=== PATIENT | female | born 1985 | race Caucasian/White ===

== ENCOUNTER 2018-12-07 07:53 | Inpatient (IN) ==
--- NOTE | 2018-11-06 10:42 | Anesthesiology Consultation ---
Date of Service November 06, 2018 Assessment & Plan (1) Encounter for pre-operative examination: - Thoracic surgery: 07/17/18: s/p [facility] ER visit 2/2 dyspnea (patient at that time was 8 weeks ). PE ruled out. CTA consistent with pneumonia- discharged on inhaler; also, pericardial cyst noted. ER EKG: ST at 132 bpm (HR 92 at thoracic surgery f/u office visit 07/17/18). Possible LAE. Inferior TWA. Tachycardia improved with bolus (HR 92 at F/U office visit). Case reviewed by Dr. Sanchez and recommended patient followup as outpatient. At followup visit 07/17/18, lungs clear and symptoms resolved. No "red flags" regarding pericardial cyst and plan for repeat CT to monitor after (scheduled 03/2019). Patient subsequently had D&E: 08/28/18: LMA#4 at [facility]. - Check test AM DOS Chart Review Chart Review: Acceptable Risk for Surgery (pending repeat EKG (attempting to have patient repeat EKG prior to surgery)) and Patient NOT seen in Pre Admission Testing History Surgery Operation Date: 12/07/18 07:15 Proposed Procedures p Right Video Assisted Thoracoscopy with Resection Pericardial Cyst - Samson Sanchez MD, FACS Height/Weight Height: 5 ft 7 in Weight: 81.647 kg Allergies Allergy/AdvReac Type Severity Reaction Status Date / Time kiwi Allergy Severe LIP/THROAT/FACE Verified 11/06/18 09:14 EDEMA Sulfa (Sulfonamide Allergy Intermediate HIVES Verified 11/06/18 09:14 Antibiotics) bacitracin Allergy Mild RASH Verified 11/06/18 09:14 latex Allergy Mild RASH Verified 11/06/18 09:14 neomycin Allergy Mild RASH Verified 11/06/18 09:14 polymyxin B Allergy Mild RASH Verified 11/06/18 09:14 Medications Home Medications Medication Instructions Recorded Confirmed Last Taken multivitamin 1 tab PO DAILY 11/06/18 11/06/18 Unknown Past Medical History Medical History Pericardial cyst INCIDENTAL FINDING 06/2018- CT SCAN FINDING DURING Past Surgical History Surgical History History of cholecystectomy LAP History of dilatation and curettage Social History Smoking Status: Never smoker Do You Dip or Chew Tobacco: No Hx Alcohol Use: No Hx Substance Use: No substance use type: does not use Testing Electrocardiogram Date: 07/07/18 ST at 132 bpm (HR 92 at thoracic surgery f/u office visit 07/17/18). Possible LAE. Inferior TWA. Other Testing CTA Chest: 07/07/18: no evidence of pulmonary embolus. Small patchy groundglass densities within the right upper lobe anteriorly and right middle lobe. This favors a mild pneumonitis and may be due to an infectious process. There is a 4.7 x 2.6 cm low density structure adjacent to the right heart border along the hemidiaphragm. This favors a pericardial cyst. Chest MRI: 10/03/18: Small laminar pericardial cyst along the right cardiophrenic angle. This is benign and unlikely to result in symptomatology. No suspicious lesion in the thorax. No mass lesion involving the airway.
[~2018-12-07 07:53] MED LIST: LR 15ML/HR IV SCH
[2018-12-07] MEDS ORDERED: PHENYLEPHRINE HCL 10 MG/ML VIAL ONE ×2 (10:43→13:01)
[2018-12-07] MEDS ORDERED: fentaNYL citrate 100 MCG/2 ML VIAL ONE ×3 (10:43→14:32)
[2018-12-07] MEDS ORDERED: SUCCINYLCHOLINE CHLORIDE 20 MG/ML 10 ML VIAL ONE (10:43)
[2018-12-07] MEDS ORDERED: NEOSTIGMINE METHYLSULFATE 5 MG/5 ML SYR ONE (10:43)
[2018-12-07] MEDS ORDERED: ePHEDrine sulfate 50 MG/ML AMP ONE (10:43)
[2018-12-07] MEDS ORDERED: DEXAMETHASONE SOD INJ 4 MG/ML VIAL ONE ×3 (10:43→13:58)
[2018-12-07] MEDS ORDERED: PROPOFOL IV EMULSION 10 MG/ML 20 ML VIAL IV ONE ×4 (10:43→14:55)
[2018-12-07] MEDS ORDERED: LIDOCAINE HCL 2% 2 ML VIAL/AMP(20MG/ML) INFIL ONE (10:43)
[2018-12-07] MEDS ORDERED: GLYCOPYRROLATE 0.2 MG/ML VIAL ONE (10:43)
[2018-12-07] MEDS ORDERED: ONDANSETRON INJ 2 MG/ML 2 ML VIAL ONE (10:43)
[2018-12-07] MEDS ORDERED: MIDAZOLAM HCL 1 MG/ML 2ML VIAL ONE ×2 (10:43→12:27)
[2018-12-07] MEDS ORDERED: BUPIVACAINE 0.5 % 5 MG/1 ML MPF 30ML VIAL ONE (11:37)
[2018-12-07] MEDS ORDERED: SODIUM CHLORIDE 0.9% PF 50 ML VIAL ONE (11:38)
[2018-12-07] MEDS ORDERED: BUPIVACAINE LIPOSOME 1.3% 266 MG/20 ML VIAL ONE (11:38)
--- NOTE | 2018-12-07 11:41 | History & Physical Report ---
Date of Service December 07, 2018 Assessment & Plan (1) Pericardial cyst: We are going to proceed with a right thoracoscopy with a pericardial cyst excision. We discussed risk and benefits including lung injuries bleeding prolonged air leaks. I explained that might biggest concern would be that this is not a pericardial cyst. I would find that highly unlikely but we did discuss this in the office. We are going to proceed today with a right thoracoscopy with a pericardial cyst excision. Present on Admission?: Yes History of Present Illness This is a very nice healthy 32-year-old female who was serendipitously found to have a right pericardial cyst. CT scan was performed to rule out a pulmonary embolism and an MRI confirmed this suspected pericardial cyst. A long talk in the office on several occasions I discussed this with her . I explained that observing this cyst is an option. It is fairly large of 5 cm across. Occasionally people can bleed into the cyst. Also possible it is not a pericardial cyst although I would find that highly unlikely. One problem I do have at the patient is she has a pressure type pain in her right substernal area. We had a long talk about this. I explained that I do not believe this is from her pericardial cyst but it is possible. At any rate we are going to proceed with a right thoracoscopy with excision of the cyst on 12/07/2018. Primary Care Provider: Miguel Pierre MD Allergies Allergy/AdvReac Type Severity Reaction Status Date / Time kiwi Allergy Severe LIP/THROAT/FACE Verified 12/07/18 08:32 EDEMA Sulfa (Sulfonamide Allergy Intermediate HIVES Verified 12/07/18 08:32 Antibiotics) bacitracin Allergy Mild RASH Verified 12/07/18 08:32 latex Allergy Mild RASH Verified 12/07/18 08:32 neomycin Allergy Mild RASH Verified 12/07/18 08:32 polymyxin B Allergy Mild RASH Verified 12/07/18 08:32 Home Medications Home Medications Medication Instructions Recorded Confirmed Type multivitamin 1 tab PO DAILY 11/06/18 12/07/18 History Past Med/Surg History Medical History Pericardial cyst INCIDENTAL FINDING 06/2018- CT SCAN FINDING DURING Surgical History History of cholecystectomy LAP History of dilatation and curettage Social History Preferred Language: Urdu Communication Ability: Effective Hospitality Housekeeper Required: No Beliefs That Will Affect Care: None Current Living Situation: Family Other Information That Helps Us Care for You: No Feels Safe at Home: Yes Safety Concerns: Feels Safe At This Time Smoking Status: Never smoker Do You Dip or Chew Tobacco: No ; Second Hand Exposure: No ; Tobacco Cessation Education Requested by Patient: No Hx Alcohol Use: No Hx Substance Use: No Review of Systems Review of Systems: All systems reviewed & are unremarkable except as noted in HPI & below Physical Exam Physical Exam: Is a well-developed well-nourished female who is awake alert and orient coming by her . She wears glasses. Extra documents are intact. Pupils are equally round reactive. Sclera anicteric. Her teeth are in excellent repair. Tongue is midline. Her neck is supple. She has no neck vein distention. She has no supra clavicular cervical lymphadenopathy. Her lungs are clear. She has a regular rate and rhythm of her heart. Her abdomen is soft and nontender. She has no peripheral edema. She has no joint effusions. Neurologically she is completely intact. Results & Data Vital Signs (Past 12 Hours) Vital Signs Temp Pulse Resp BP Pulse Ox 12/07/18 08:40 36.7 C 86 18 143/99 H 99 PG Care Time/CCT Total # of Minutes Spent Total Time Spent with Patient: Total time spent is greater than 50% in coordination of care (as documented) at patient's floor/unit and/or counseling patient:
[2018-12-07] MEDS: CEFAZOLIN 2000MG 2,000 MG/15 ML SYR IV ONE ×2 (13:04→13:11)
[2018-12-07] MEDS ORDERED: ePHEDrine sulfate 50 MG/ML AMP IV PRN (13:21)
[2018-12-07] MEDS ORDERED: ONDANSETRON INJ 2 MG/ML 2 ML VIAL IV PRN ×2 (13:21→16:38)
[2018-12-07] MEDS ORDERED: ATROPINE SULFATE 0.1 MG/ML 10ML SYR IV PRN (13:21)
[2018-12-07] MEDS ORDERED: HYDROmorphone INJ 1 MG/ML SYRINGE IV PRN (13:21)
[2018-12-07] MEDS ORDERED: CEFAZOLIN 250 MG/ML 1 GM VIAL ONE (13:58)
[2018-12-07] MEDS ORDERED: ROCURONIUM BROMIDE 10 MG/ML 5 ML VIAL ONE (13:58)
--- NOTE | 2018-12-07 14:21 | Post Operative Brief Note ---
PG Immediate Post Op with CF Date of Surgery December 07, 2018 Pre & Post Diagnosis Operation Date: 12/07/18 09:40 Pre-Op Diagnosis: Pericardial Cyst Post-Op Diagnosis: Pericardial Cyst, lung adhesions Procedure Operation Date: 12/07/18 09:40 Actual Procedures p Right Video-Assisted Thoracoscopy,(Right) - Samson Sanchez MD, FACS s with Resection Pericardial Cyst(Right) lysis of adhesions - Samson Sanchez MD, FACS Surgeon Samson Sanchez MD, FACS Stress Engineer Rona Allen RN Estimated Blood Loss 20 Findings Consistent with Post-Op Diagnosis Specimens Specimen Description: A. Pericardial Cyst Drains Chest Tube (24FR. )
--- NOTE | 2018-12-07 15:05 | XRay Report ---
XR chest 1V portable CLINICAL HISTORY: Postoperative evaluation. COMPARISON STUDY: Chest CT July 07, 2018. MRI of the chest October 03, 2018. FINDINGS: Right apical chest tube is in place. There is a suspected trace right apical pneumothorax. There are mild bibasilar opacities. There is no evidence for pulmonary edema. Cardiomediastinal silho uette is normal. IMPRESSION: 1. Right apical chest tube in place. Possible trace right apical pneumothorax. 2. Mild bibasilar opacities. Electronically signed by: Ramos Champagne M.D. 12/07/2018 3:03 PM
[2018-12-07] MEDS: fentaNYL citrate 100 MCG/2 ML VIAL IV PRN ×2 (15:06→15:10)
--- NOTE | 2018-12-07 15:47 | Procedure Note ---
Procedure Note Date of Service December 07, 2018 Radial arterial line placed in left wrist after induction in preparation for VATS with Dr. Sanchez. Left wrist prepped with chlorhexidine and draped with sterile towels. 20 G angiocath placed under sterile technique utilizing sterile gloves, surgical hats and masks and ultrasound. Catheter threaded using seldinger technique with return of pulsatile, bright red blood. Site covered with occlusive dressing and taped in place. Waveform consistent with correct arterial placement. After placement, fingers of procedural hand had normal perfusion. Patient tolerated procedure well without complications. Coding
--- NOTE | 2018-12-07 15:49 | Procedure Note ---
Procedure Note Date of Service December 07, 2018 This note is to serve as an addendum to the anesthetic record dated today. After IV induction, the patient was an easy mask and was paralyzed with rocuronium. She was a grade 2 view with MAC 3 blade, but I was unable to reach the cords with the tip of a 37 belgian double lumen tube. A bougie was passed successfully, but I was unable to easily thread the double lumen tube over the bougie. An exchange catheter was attempted but the flexible tip was having trouble reaching the anterior airway and when the tube was passed over the exchange catheter, placement went into the esophagus. The fiberoptic was than easily passed through the cords. When passing the double lumen tube over the fiberoptic and into the airway, the double lumen tube became caught on the patients arytenoids. The fiberoptic scope was left in the airway and the cords were directly visualized with the GlideScope. This allowed us to maneuver the ETT over the arytenoids and through the cords. Placement of the left 37 belgian double lumen tube was than confirmed by passing the fiberoptic scope through both lumens of the ETT. Throughout the process of tube placement, the patient was easy to mask ventilate and oxygen saturations were in the high 90s. Coding
[2018-12-07] MEDS ORDERED: MoRPHine SULFATE 2 MG/ML CARP IV PRN (16:38)
[2018-12-07] MEDS: KETOROLAC 30 MG/ML VIAL IV SCH (16:56)
[2018-12-07] MEDS: D5W AND 1/2NSS 1,000 ML IV SCH (17:00)
--- NOTE | 2018-12-07 17:11 | Anesthesiology Progress Note ---
Date of Service December 07, 2018 Anesthesia Post Procedure Vital Signs Vital Signs: Temp Pulse Pulse Resp BP BP Pulse Ox 12/07/18 16:25 67 13 113/75 97 12/07/18 16:15 36.5 C 61 12 109/71 97 12/07/18 16:05 59 L 13 107/71 98 12/07/18 15:55 55 L 13 108/71 97 12/07/18 15:45 70 18 108/69 98 12/07/18 15:35 62 15 107/68 99 12/07/18 15:25 60 19 110/70 99 12/07/18 15:15 36.3 C L 60 13 101/71 100 12/07/18 15:05 57 L 18 119/87 100 12/07/18 14:55 57 L 16 120/82 100 12/07/18 14:45 59 L 12 110/70 100 12/07/18 14:38 36.0 C L 68 14 118/82 100 12/07/18 08:40 36.7 C 86 18 143/99 H 99 Pain Intensity Right Chest: Pain Intensity: 5 Transfer of Care Handoff Completed per policy Notes Mental Status: alert / awake / arousable and participated in evaluation Patient Amnestic to Procedure: Yes Nausea / Vomiting: adequately controlled Pain: adequately controlled Airway Patency, RR, SpO2: stable & adequate BP & HR: stable & adequate Hydration State: stable & adequate Anesthetic Complications: no major complications apparent and Pt Satisfied with anesthetic care
[2018-12-07 17:30] LABS: Creatinine Clr Calc Pharmacy 118.1 ml/min; Est GFR (African American) 120.5
[2018-12-07] MEDS: OXYCODONE/ACETAMINOPHEN 5mg/325mg TAB PO PRN (20:07)
[2018-12-08] MEDS: KETOROLAC 30 MG/ML VIAL IV SCH ×2 (01:24→09:31)
--- NOTE | 2018-12-08 02:02 | Operative Report ---
DATE OF OPERATION: 12/07/2018 DATE OF PROCEDURE: 12/07/2018 PREOPERATIVE DIAGNOSIS: Right pericardial cyst. POSTOPERATIVE DIAGNOSES: 1. Right pericardial cyst. 2. Marked adhesions between the lung and chest wall. PROCEDURE: 1. Right thoracoscopy with extensive lysis of adhesions. 2. Excision of pericardial cyst. SURGEON: Samson Sanchez MD PARTS CLERK PLANT MAINTENANCE: Rona Allen RN. ANESTHESIA: General anesthesia, endotracheal intubation using a double lumen tube. SPECIFICS OF PROCEDURE AND FINDINGS: Skip Salazar is a 32-year-old female who really is very healthy except for the fact that she had some chest pain, underwent a CT scan of her chest to rule out pulmonary emboli and was found to have a pericardial cyst. We evaluated this further with an MRI which confirmed this. I had a long talk with the patient and her . I explained we could watch this or we could remove this. I did not feel that she would be a very high operative risk. After much discussion, the patient and her decided they would like to have this cyst excised. On 12/07/2018, the patient underwent an uncomplicated resection of the cyst without difficulty. However, we did have a problem with the adhesions. She had marked adhesions of the upper lobe, middle lobe and lower lobe to the chest wall, especially to the diaphragm which we took down sharply with cautery and this worked out very nicely. We also excised the cyst. She tolerated it well, was extubated in the room. DESCRIPTION OF PROCEDURE: The patient was brought to the operating room, laid in supine position. General anesthesia induced and endotracheal intubation performed with a double lumen tube. The patient was then turned in left lateral decubitus position, right chest prepped and draped in usual sterile fashion. After appropriate timeout had been called and prophylactic antibiotics given, a 5 mm port was placed posterior to the scapular tip. Upon going in, it could be seen there were some adhesions; however, we had enough free area where I could see the area which is still posterior to the mid axillary line, but more inferior and we put another 5 mm port. With these 2, we used a Harmonic scalpel as well as a hook cautery and retraction and I was able to take down much of these adhesions to the lateral chest wall. We then put another 5 mm port anterior to the tip of the scapula. We then meticulously took down all adhesions, especially from the diaphragm to the right lower lobe. She had fairly complete fissures. Taking down all the adhesions, lung was retracted up in the pericardial cyst was quite obvious. Using a Harmonic scalpel, I then removed this with some pericardial fat with care taken to avoid any injuries to any surrounding structures. Unfortunately, the fluid leaked out and decompressed the sac. We then removed this with an Endobag through a small 5 mm incision. We then irrigated out the chest, really did not see much in the way of bleeding. A 266 mg of Exparel and 20 mL of solution were mixed with 30 mL of 0.5% Marcaine and 250 mL of normal saline. We used this to inject each of the three 5 mm ports. We then did an intercostal block intrathoracically under thoracoscopic guidance from the 2nd to the 12th rib. We really got into no bleeding. We were quite pleased with the appearance of the lung after we finished. We did not have an air leak at the conclusion. A 24-S[place]an chest tube was placed in the anterior most port site and directed towards the apex and sutured in place with heavy silk suture. A 4-0 Monocryl was then used in running subcuticular fashion and closed in two 5 mm port sites. She tolerated this well and was extubated in the room with negligible blood loss. I attest to the content of the Intraoperative Record and any orders documented therein. Any exception s are noted below.
[2018-12-08] MEDS: D5W AND 1/2NSS 1,000 ML IV SCH (02:42)
--- NOTE | 2018-12-08 07:41 | XRay Report ---
SINGLE VIEW CHEST CLINICAL HISTORY: Postoperative examination. Status post chest tube removal. FINDINGS: An AP, portable, upright chest radiograph is compared to study dated 12/07/2018 and correlate d with chest CT dated 07/07/2018. The examination is degraded by portable technique and patient rotatio n. A right-sided chest tube has been removed. The cardiomediastinal silhouette is unremarkable. Trace pleural effusions are noted with bibasilar opacities. Trace right apical pneumothorax is suspected. The bony thorax is grossly intact. IMPRESSION: 1. A right-sided chest tube has been removed. There is likely a trace right apical pneumothorax. 2. Trace pleural effusions are noted. Bibasilar opacities likely represent atelectasis. Electronically signed by: Brody Gunn M.D. 12/08/2018 7:40 AM
[2018-12-08] MEDS: OXYCODONE/ACETAMINOPHEN 5mg/325mg TAB PO PRN (07:44)
[2018-12-08 08:14] LABS: BUN Creatinine Ratio 8.8 (10-20); Calcium 8.9 mg/dl (8.5-10.1); Creatinine Clr Calc Pharmacy 121.3 ml/min; Est GFR (African American) 124.5; Est GFR (Non-African American) 107.5; Potassium 3.7 mmol/L (3.5-5.1)
[2018-12-08] MEDS ORDERED: MULTIVITAMIN TAB PO SCH (09:00)
--- NOTE | 2018-12-08 14:56 | Discharge Summary ---
DISCHARGE DIAGNOSES: 1. Right pericardial cyst. 2. Marked pulmonary adhesions right pleural cavity. HOSPITAL COURSE: Skip Salazar is a very nice 32-year-old female who was really very healthy. She was found serendipitously to have a mass in her right chest and an MRI confirmed this to be a pericardial cyst. I had a long discussion on more than one occasion with the patient and her . The patient would like the cyst removed and her asked that the cyst be excised. We had a long discussion about this and proceeded on 12/07/2018. We performed an uncomplicated right thoracoscopic excision of this obvious pericardial cyst. We used three 5 mm incisions. The patient had marked adhesions which was surprising in this nonsmoker. In retrospect, upon further questioning, she states that she did have pruritus at age 11. At any rate, this came down nicely. She had no air leak and essentially no blood loss. She did complain of some anterior right chest pain which was consistent with pain she actually had had preop. I do not think this was related to any intrathoracic pathology. I pulled her chest tube on the morning of postop day 1. Her x-ray looked quite good. I did give her tramadol to go home with. She is really is on no other medications otherwise. We will see her back in the office in a week to go over the final pathology. Her incisions were clean. Her lungs were clear. Her x-ray looked quite good at the time of discharge.
== END 2018-12-08 09:50 | disposition home or self-care (01) | DRG 272 ==
LOC: ASU 07:53 → 3N 14:43

== ENCOUNTER 2020-01-22 07:29 | Inpatient (IN) ==
[2020-01-22] MEDS ORDERED: OXYTOCIN 30 UNITS/500 ML BAG IV PRN ×3 (07:49→18:28)
[2020-01-22 08:09] LABS: Hematocrit (blood only) 38.6 % (37-47); Hemoglobin 12.8 g/dL (12.0-16.0); Mean Corpuscular Hemoglobin 30.9 pg (25-34); Mean Corpuscular Volume 93.2 fL (80-100); Mean Platelet Volume 10.9 fL (7.4-10.4); Platelet Count 158 K/uL (130-400); RDW Coefficient of Variation 13.6 % (11.5-14.5); RDW Standard Deviation 46.1 fL (36.4-46.3); Red Blood Count 4.14 M/uL (4.2-5.4); White Blood Count 6.65 K/uL (4.8-10.8)
[2020-01-22 08:11] LABS: Mean Corpuscular Hgb Conc 33.2 g/dL (32-36)
[2020-01-22] MEDS: LACTATED RINGER'S 1,000 ML IV PRN ×2 (09:39→13:02)
[2020-01-22] MEDS ORDERED: ePHEDrine sulfate 50 MG/ML AMP ONE (12:19)
[2020-01-22] MEDS ORDERED: BUPIVACAINE 0.25% 30 ML VIAL ONE (12:19)
[2020-01-22] MEDS ORDERED: fentaNYL citrate 100 MCG/2 ML VIAL ONE (12:20)
[2020-01-22] MEDS ORDERED: fentaNYL 2MCG/ML ROPIV 1.25MG/ML 100 ML BAG EPI ONE (12:20)
--- NOTE | 2020-01-22 13:08 | Anesthesiology Consultation ---
Date of Service January 22, 2020 Assessment & Plan (1) Encounter for pre-operative examination: Chart Review Chart Review: Patient NOT seen in Pre Admission Testing and Acceptable Risk for Labor Epidural Consults Requested none ASA ASA2 Proposed Anesthesia Anesthesia Type: Labor Epidural Risk / Benefits Reviewed With: PT / POA / Parent / Guardian, Accepts Plan and Informed Consent Obtained History Height/Weight Height: 5 ft 7 in Weight: 99.79 kg Allergies Allergy/AdvReac Type Severity Reaction Status Date / Time kiwi Allergy Severe LIP/THROAT/FACE Verified 01/21/20 11:37 EDEMA Sulfa (Sulfonamide Allergy Intermediate HIVES Verified 01/21/20 11:37 Antibiotics) bacitracin Allergy Mild RASH Verified 01/21/20 11:37 latex Allergy Mild RASH Verified 01/21/20 11:37 neomycin Allergy Mild RASH Verified 01/21/20 11:37 polymyxin B Allergy Mild RASH Verified 01/21/20 11:37 Medications Home Medications Medication Instructions Recorded Confirmed Last Taken prenat.vits,marielos,tmi-meko-wdlvd 1 tab PO DAILY 06/10/19 01/22/20 1 Day Ago ~01/21/20 acetone (urine) test #50 ea 08/16/19 01/21/20 Unknown blood sugar diagnostic #150 ea 08/16/19 01/21/20 Unknown blood-glucose meter #1 ea 08/16/19 01/21/20 Unknown lancets 33 gauge #150 ea 08/16/19 01/21/20 Unknown Active Medications Generic Name Dose Route Start Last Admin Trade Name Freq PRN Reason Stop Dose Admin Lactated Ringer's 1,000 mls @ 125 mls/hr 01/22/20 07:49 01/22/20 13:02 Lr IV 01/24/20 07:48 125 mls/hr .Q8H PRN Administration L&D Protocol Protocol Oxytocin 30 units in 500 mls @ 8 mls/hr 01/22/20 07:49 01/22/20 12:00 Pitocin IV 01/24/20 07:48 0.48 units/hr .Q24H PRN 8 mls/hr Labor Induction/Augmentation Titration Protocol 0.48 UNITS/HR NPO Date Last Intake of Fluids: 01/22/20 Time Last Intake of Fluids: 07:00 Date Last Intake of Solids: 01/22/20 Time Last Intake of Solids: 06:30 Past Medical History Medical History Encounter for anatomic survey Encounter for pre-operative examination History of chicken pox Pericardial cyst INCIDENTAL FINDING 06/2018- CT SCAN FINDING DURING Exercise / Class Metabolic Activity II 4-5 Yardwork/Stairs/Walk up hill Past Family History Family History Mother Cervical cancer Hypertension Brother Hypertension Son Morgagni hernia Past Surgical History Surgical History History of cholecystectomy LAP History of dilatation and curettage S/P pericardial cyst excision 1. Right thoracoscopy with extensive lysis of adhesions. 2. Excision of pericardial cyst. Dr. Sanchez 12-07-18 Past Anesthesia History No Hx of Anesthesia Complications History of PONV No Hx of PONV Social History Smoking Status: Never smoker Hx Alcohol Use: No Hx Substance Use: No substance use type: does not use Review of Systems Negative for chest pain or shortness of breath. Patient denies active symptoms of GERD. Patient denies history of abnormal bleeding or bleeding disorder. Patient denies active use of anticoagulants other than low dose aspirin. Patient denies numbness, tingling or weakness in lower extremities. Physical Exam Vital Signs Last Vital Signs Temp 36.8 C 01/22/20 12:00 Pulse 76 01/22/20 12:53 Resp 18 01/22/20 12:00 BP 119/81 01/22/20 11:40 Pulse Ox 98 01/22/20 12:53 Constitutional not obese (gravid uterus) ENMT Mouth: + small oral opening; no TMJ abnormality Thyromental Distance: > or= 3.5 Finger Breadths Mallampati Class: III Neck normal visual inspection; neck extension not limited Respiratory normal respiratory effort Auscultation: lungs clear to auscultation bilaterally Cardiovascular Rate/Rhythm: regular rate and regular rhythm Heart Sounds: no murmur Neurologic moves all extremities Motor/Sensory: no sensory deficit Psychiatric Orientation: alert and oriented x 3 Testing Laboratory Results 01/22/20 07:59
[2020-01-22] MEDS ORDERED: NALOXONE HCL 0.4 MG/1 ML VIAL/CARP IV PRN (13:46)
[2020-01-22] MEDS ORDERED: ONDANSETRON INJ 2 MG/ML 2 ML VIAL IV PRN (13:46)
[2020-01-22] MEDS ORDERED: fentaNYL 2MCG/ML ROPIV 1.25MG/ML 100 ML BAG EPI PRN (13:46)
[2020-01-22] MEDS ORDERED: NALOXONE HCL 1 MG in SODIUM CHLORIDE 0.9% 1000ML 1,000 ML IV PRN (13:46)
[2020-01-22] MEDS ORDERED: DiphenhydrAMINE HCL 50 MG/ML VIAL IV PRN (13:46)
[2020-01-22] MEDS ORDERED: ePHEDrine sulfate 50 MG/ML AMP IV PRN (13:46)
--- NOTE | 2020-01-22 13:51 | History & Physical Report ---
Date of Service January 22, 2020 Assessment & Plan (1) Diet controlled gestational diabetes mellitus (GDM), antepartum: (2) Supervision of elderly multigravida, antepartum: 34yo at 40.4 weeks GA. Presents for IOL. 1. Fetus: Cat 1 2. Labor: Will start oxytocin. AROM when able 3. GBS Negative 4. Epidural PRN 4. Vitals WNL Admission and Anticipated Discharge Date Admission Date: January 22, 2020 History of Present Illness Primary Care Provider: NO PCP 34yo at 40.4 weeks presents for IOL. complicated by A1gDM and AMA. OB Labs: Blood Type O Positive 06/17/19 Antibody Screen NEGATIVE 06/17/19 Hemoglobin 13.6 g/dL (12.0-16.0) 06/17/19 Hematocrit 40.5 % (37-47) 06/17/19 Mean Corpuscular Volume 93.8 fL (80-100) 06/17/19 Platelet Count 278 K/uL (130-400) 06/17/19 Rubella IgG Antibody Immune (Immune) 06/17/19 Rapid Plasma Reagin Nonreactive (Nonreactive) 06/17/19 Hepatitis B Surface Antigen Neg (Neg) 06/17/19 HIV (1&2) Ab and P24 Ag, 4th Gener Neg (Neg) 06/17/19 OB Optional Labs: Chlamydia trachomatis RNA NOT DETECTED (NOT DETECTED) Neisseria gonorrhoeae RNA NOT DETECTED (NOT DETECTED) Thyroid Stimulating Hormone (TSH) 1.690 uIu/ml (0.300-4.500) Low risk cfDNA Allergies Allergy/AdvReac Type Severity Reaction Status Date / Time kiwi Allergy Severe LIP/THROAT/FACE Verified 01/21/20 11:37 EDEMA Sulfa (Sulfonamide Allergy Intermediate HIVES Verified 01/21/20 11:37 Antibiotics) bacitracin Allergy Mild RASH Verified 01/21/20 11:37 latex Allergy Mild RASH Verified 01/21/20 11:37 neomycin Allergy Mild RASH Verified 01/21/20 11:37 polymyxin B Allergy Mild RASH Verified 01/21/20 11:37 Home Medications Home Medications Medication Instructions Recorded Confirmed Type prenat.vits,marielos,gbt-[id number]-jbkqo 1 tab PO DAILY 06/10/19 01/22/20 History acetone (urine) test #50 ea 08/16/19 01/21/20 Rx blood sugar diagnostic #150 ea 08/16/19 01/21/20 Rx blood-glucose meter #1 ea 08/16/19 01/21/20 Rx lancets 33 gauge #150 ea 08/16/19 01/21/20 Rx Patient History Medical History Encounter for anatomic survey Encounter for pre-operative examination History of chicken pox Pericardial cyst INCIDENTAL FINDING 06/2018- CT SCAN FINDING DURING Surgical History History of cholecystectomy LAP History of dilatation and curettage S/P pericardial cyst excision 1. Right thoracoscopy with extensive lysis of adhesions. 2. Excision of pericardial cyst. Dr. Sanchez 12-07-18 Family History Mother Cervical cancer Hypertension Brother Hypertension Son Morgagni hernia Social History (Updated 06/10/19 @ 09:02 by Kenia Rivera) Smoking Status: Never smoker Second Hand Exposure: No; Hx Alcohol Use: No Hx Substance Use: No Preferred Language: Telugu Communication Ability: Effective Global Manager Required: No Beliefs That Will Affect Care: None marital status: marital status details: Joseph Salazar [phone] Current Living Situation: Spouse Current Living Situation Comment: lives with spouse, 2 sons, step son, dog current occupational status: employed current occupation: Practce [employer] Feels Safe at Home: Yes Safety Concerns: Feels Safe At This Time Assistive Devices: None Physical Exam Constitutional: WD/WN, vitals as above Eyes: PERRL, conjunctivae normal, anicteric sclerae ENMT: external ear and nose normal, oropharynx normal Neck: trachea midline, no thyromegaly Gastrointestinal (Abdomen): Percussion/Palpation: abdomen soft; abdomen nontender, no guarding and abdomen not rigid Genitourinary: OB Exam Abdomen: + vertex Manual OB Exam: + cervical dilation 3 cm, + cervical effacement 70% and + station -2 OB Exam Monitor Tracing: + external FHT monitor used, + external uterine monitor used, + category I and + normal FHT variability; no early decelerations present, no late decelerations present and no variable decelerations Results & Data ([facility]) Vital Signs (Past 12 Hours) Vital Signs Temp Pulse Resp BP 01/22/20 08:30 18 01/22/20 08:00 20 01/22/20 07:47 37 C 16 01/22/20 07:40 96 H 129/86 Code Status & VTE Plan VTE Prophylaxis Plan VTE Prophylaxis will be ordered: Yes Coding Level of Care Code None Diagnoses Diet controlled gestational diabetes mellitus (GDM), antepartum O24.410 Supervision of elderly multigravida, antepartum O09.529
--- NOTE | 2020-01-22 13:55 | Labor Progress Brief Note ---
Date of Service January 22, 2020 Subjective Reason For Note: Routine Evaluation Assessment & Plan (1) Diet controlled gestational diabetes mellitus (GDM), antepartum: (2) Supervision of elderly multigravida, antepartum: 34yo at 40.4 weeks GA. Presents for IOL. 1. Fetus: Cat 1 2. Labor: Unchanged. AROM 3. GBS Negative 4. Epidural placed 4. Vitals WNL Admission and Anticipated Discharge Date Admission Date: January 22, 2020 Physical Exam Genitourinary: OB Exam Abdomen: + vertex Manual OB Exam: + cervical dilation 3 cm, + cervical effacement 70%, + station -2 and + amniotic fluid bloody OB Exam Monitor Tracing: + external FHT monitor used, + external uterine monitor used, + category I and + normal FHT variability; no late decelerations present and no variable decelerations Results & Data ([facility]) Vital Signs (Past 12 Hours) Vital Signs Temp Pulse Resp BP Pulse Ox 01/22/20 13:50 77 129/84 01/22/20 13:48 86 98 01/22/20 13:47 76 154/83 H 01/22/20 13:45 96 H 134/103 H 01/22/20 13:43 76 98 01/22/20 13:39 75 127/75 01/22/20 13:38 78 99 01/22/20 13:37 80 122/72 01/22/20 13:35 77 126/70 01/22/20 13:33 80 133/75 98 01/22/20 13:32 75 140/74 01/22/20 13:31 81 89 L 01/22/20 13:29 84 126/83 01/22/20 13:28 81 98 01/22/20 13:27 82 142/92 H 01/22/20 13:26 77 148/93 H 01/22/20 13:23 77 138/92 99 01/22/20 13:18 78 99 01/22/20 13:13 83 98 01/22/20 13:08 76 98 01/22/20 13:03 76 99 01/22/20 12:58 84 96 01/22/20 12:53 76 98 01/22/20 12:48 82 99 01/22/20 12:43 79 98 01/22/20 12:38 76 98 01/22/20 12:33 74 98 01/22/20 12:28 74 99 01/22/20 12:23 75 97 01/22/20 12:00 36.8 C 18 01/22/20 11:40 76 119/81 01/22/20 11:30 18 01/22/20 11:00 01/22/20 10:41 72 120/79 01/22/20 10:30 18 01/22/20 10:00 20 01/22/20 09:30 18 01/22/20 09:00 01/22/20 08:30 18 01/22/20 08:00 01/22/20 07:47 37 C 16 01/22/20 07:40 96 H 129/86 Coding Level of Care Code None Diagnoses Diet controlled gestational diabetes mellitus (GDM), antepartum O24.410 Supervision of elderly multigravida, antepartum O09.529
[2020-01-22] MEDS ORDERED: ACETAMINOPHEN 325 MG TAB PO PRN (18:28)
[2020-01-22] MEDS ORDERED: IBUPROFEN 600 MG TAB PO PRN (18:28)
[2020-01-22] MEDS ORDERED: SUPERCREAM 0.870% 15 GM JAR EXT PRN (18:28)
[2020-01-22] MEDS ORDERED: bisacodyL 10 MG SUPP PR PRN (18:28)
[2020-01-22] MEDS ORDERED: HYDROCORTISONE ACETATE 25 MG SUPP PR PRN (18:28)
[2020-01-22] MEDS ORDERED: BENZOCAINE 20% AER SPR 82.5 GM CAN EXT PRN (18:28)
--- NOTE | 2020-01-22 18:44 | Delivery Summary ---
DATE OF OPERATION: 01/22/2020 PROCEDURE: Normal spontaneous vaginal delivery. SURGEON: Bo Smith MD. PREOPERATIVE DIAGNOSES: 1. Single intrauterine at 40+ weeks' gestational age. 2. Gestational diabetes, diet controlled. 3. Advanced maternal age. POSTOPERATIVE DIAGNOSES: 1. Single intrauterine at 40+ weeks' gestational age. 2. Gestational diabetes, diet controlled. 3. Advanced maternal age. 4. Status post procedure. ESTIMATED BLOOD LOSS: 200 mL. DRAINS: Straight cath at the completion of the case. COMPLICATIONS: None. URINE OUTPUT: Approximately 400 per straight cath. INDICATIONS: Skip is a 34-year-old G4, P2-0-1-2, admitted at 40 weeks 4 days gestational age for late term induction of labor. On initial evaluation, the patient was found to be 3 cm dilated, 50% effaced, -2 station. She was started on oxytocin per regular protocol. She underwent artificial rupture of membranes several hours later for clear fluid. The patient progressed in labor to complete-complete +2 station, at which time she felt a strong urge to push. The patient did receive an epidural prior to rupture. DESCRIPTION OF PROCEDURE: The patient progressed to 10 cm dilated, 100% effaced, +2 station, pushed over intact perineum with epidural anesthesia and delivered a viable male infant with weight and Apgars pending. Head of the delivered in LAURA position, restituted to left transverse. No nuchal cord was noted. Body and shoulders quickly followed. was noted to be vigorous upon delivery and a 1-minute delayed cord clamping was initiated. Cord was double clamped and cut. was then taken to the waiting nursery staff for further evaluation. The cord blood was then obtained. Attention was then turned to delivery of the placenta, delivered intact, 3-vessel cord, gentle cord traction. On inspection of perineum, vagina, and cervix, there was noted to be no lacerations. Sponge and instrument counts were correct at the completion of the case. Both mother and were stable in the immediate post-delivery period. I attest to the content of the Intraoperative Record and any orders documented therein. Any exception s are noted below.
--- NOTE | 2020-01-22 19:30 | Anesthesia Procedure Note ---
Date of Service January 22, 2020 Anesthesia Post Epidural Note Vital Signs Vital Signs: Temp Pulse Resp BP Pulse Ox 36.8 C 71 16 144/73 H 97 01/22/20 19:00 01/22/20 19:14 01/22/20 19:00 01/22/20 19:14 01/22/20 17:53 Pain Intensity Bilateral Lower Abdomen: Pain Intensity: 7 Notes Mental Status: alert / awake / arousable and participated in evaluation Nausea / Vomiting: adequately controlled Pain: adequately controlled Airway Patency, RR, SpO2: stable & adequate BP & HR: stable & adequate Hydration State: stable & adequate Neuraxial Anesthesia: was administered and sensory block is resolving Anesthetic Complications: no major complications apparent and Pt Satisfied with anesthetic care Epidural: Removed without complications and With tip intact Notes: Epidural site clean, dry and intact. No signs of edema, erythema or bruising at insertion site. Pt instructed to request anesthesia if she has residual lower extremity numbness or if she develops lower extremity pain or weakness, back pain or headache.
[2020-01-22] MEDS: DOCUSATE SODIUM 100 MG CAP PO SCH (21:15)
[2020-01-23 05:52] LABS: Hematocrit (blood only) 37.3 % (37-47)
--- NOTE | 2020-01-23 05:55 | Obstetrical Progress Note ---
Date of Service January 23, 2020 Assessment & Plan (1) : S/p after IOL, Day 1 - Feels well today. Eating well, voiding well, ambulating well. - Pain well-controlled with ibuprofen 600mg Q4H PRN. - Vital signs reviewed and WNL. - Hemoglobin reviewed. 12.8 --> 12 (today). - Blood Type: O+, antibody negative, GBS negative, Rubella Immune, COVID-19 negative - Continue routine post- care: encourage ambulation, monitor and control pain with Motrin PRN, continue regular OB diet, monitor lochia - Encourage breast feeding. - went over discharge instructions today - After discharge, will have 6-wk follow-up with Natalia Chew [employer] Admission and Anticipated Discharge Date Admission Date: January 22, 2020 Supervising Physician Co-Signing Physician Notes Patient seen and evaluated and agree with the above findings and plan. Stable for discharge Subjective HPI Skip Salazar is a 34 y/o female with h/o diet-controlled GDM who is PPD 1 spontaneous vaginal delivery after IOL at 40 4/7 weeks. She reports feeling well overall this morning. No abdominal cramping and 0-3/10 pain well managed on analgesics. Voiding well. Tolerating meals overnight without difficulty. Patient has been able to ambulate some. passing gas and no bowel movement. Has persistent lochia with some improvement this morning. Currently . Review of Systems Review of Systems: ROS Denies fever or chills. Denies shortness of breath or cough. Denies chest pain. Denies breast pain. Denies dysuria. Denies leg pain or leg swelling. Physical Exam Physical Exam: PE General: Alert, oriented. No acute distress. Cardiac: Regular rate and rhythm. No murmurs. Respiratory: Clear to auscultation bilaterally a/p, no wheezes/rales/rhonchi. No increased work of breathing. Symmetrical chest rise. No respiratory distress. Abdomen: Soft, nontender, nondistended. Bowel sounds present. Uterus: Uterine fundus firm, palpable at umbilicus. Lower Extremities: No lower extremity edema or swelling. No deep calf pain. Connie's negative bilaterally. Results & Data ([facility]) Vital Signs (Past 12 Hours) Vital Signs Temp Pulse Resp BP Pulse Ox 01/22/20 20:06 94 H 123/82 01/22/20 20:00 92 H 118/79 01/22/20 19:29 77 136/79 01/22/20 19:14 71 144/73 H 01/22/20 19:00 36.8 C 16 01/22/20 18:59 71 137/67 01/22/20 18:45 18 01/22/20 18:44 67 141/82 H 01/22/20 18:30 16 01/22/20 18:29 77 140/83 01/22/20 18:15 18 01/22/20 18:14 77 148/82 H 01/22/20 18:00 36.5 C 18 01/22/20 17:59 73 143/96 H 01/22/20 17:57 78 141/92 H 01/22/20 17:53 77 97 Resident Activity Tracking Resident Involvement: Resident Care Provided Care Provided: OB Delivery
[2020-01-23] MEDS ORDERED: PRENATAL VITAMIN 1 TAB PO SCH (08:00)
[2020-01-23] MEDS ORDERED: DIPHTHERIA/TETANUS/PERTUSSIS 0.5 ML SYR/VIAL IM ONE (09:00)
[2020-01-23] MEDS: DOCUSATE SODIUM 100 MG CAP PO SCH (09:11)
[2020-01-23] MEDS ORDERED: bisacodyL 5 MG TABEC PO SCH (20:00)
== END 2020-01-23 18:25 | disposition home or self-care (01) | DRG 807 ==
LOC: 4S1 07:29 → 4S2 20:17

== ENCOUNTER 2021-12-07 07:37 | Inpatient (IN) ==
[2021-12-07] MEDS ORDERED: OXYTOCIN 30 UNITS/500 ML BAG IV PRN ×3 (08:59→17:15)
[2021-12-07] MEDS: LACTATED RINGER'S 1,000 ML IV PRN ×2 (09:14→12:57)
[2021-12-07 10:31] LABS: Hematocrit (blood only) 34.3 % (34.1-44.9); Hemoglobin 11.1 g/dl (12.0-16.0); Mean Corpuscular Hemoglobin 30.7 pg (25.0-34.0); Mean Corpuscular Hgb Conc 32.4 g/dL (32.0-36.0); Mean Platelet Volume 10.4 fL (9.4-12.3); Platelet Count 145 K/uL (130-400); RDW Coefficient of Variation 13.5 % (11.5-14.5); RDW Standard Deviation 46.6 fL (36.4-46.3); Red Blood Count 3.61 M/uL (3.93-5.22); White Blood Count 5.71 K/ul (4.8-10.8)
[2021-12-07] MEDS ORDERED: SODIUM CHLORIDE 0.9% INJ 10 ML VIAL ONE (12:28)
[2021-12-07] MEDS ORDERED: BUPIVACAINE 0.25% 30 ML VIAL ONE (12:28)
[2021-12-07] MEDS ORDERED: ePHEDrine sulfate 50 MG/ML AMP ONE (12:28)
[2021-12-07] MEDS ORDERED: LIDOCAINE 2%/EPINEPHRINE 1:200,000 20 ML SDV ONE (12:28)
[2021-12-07] MEDS ORDERED: fentaNYL citrate 100 MCG/2 ML VIAL ONE (12:28)
[2021-12-07] MEDS ORDERED: fentaNYL 2MCG/ML ROPIVACAINE 1.25MG/ML 100 ML BAG EPI ONE (12:29)
--- NOTE | 2021-12-07 12:29 | Labor Progress Brief Note ---
Date of Service December 07, 2021 Subjective Getting much more uncomfortable with ctx, and back pain as well Assessment & Plan (1) Gestational diabetes mellitus (GDM) affecting : Plan: Induction of labor in progress. Diet controlled, BG normal this morning. GBS neg. Pitocin, AROM, now for epidural. (2) Multigravida of advanced maternal age: Admission and Anticipated Discharge Date Admission Date: December 07, 2021 Physical Exam Genitourinary: /-1 AROM offered / accepted, scant clear fluid encountered. More clear fluid leakage as patient sits up afterward. FHT Cat 1 [place] Q3min Results & Data ([facility]) Vital Signs (Past 12 Hours) Vital Signs Temp Pulse Resp BP 12/07/21 12:12 69 132/81 12/07/21 11:15 97.7 F 64 18 129/80 12/07/21 10:15 75 130/72 12/07/21 09:14 18 12/07/21 09:14 18 12/07/21 09:15 69 126/75 12/07/21 07:41 98.1 F 70 18 130/75 Coding Level of Care Code None Diagnoses Gestational diabetes mellitus (GDM) affecting O24.419 Multigravida of advanced maternal age O09.529
[2021-12-07] MEDS ORDERED: NALBUPHINE HCL INJ 10 MG/ML AMP IV PRN (12:55)
[2021-12-07] MEDS ORDERED: ePHEDrine sulfate 50 MG/ML AMP IV PRN (12:55)
[2021-12-07] MEDS ORDERED: NALOXONE HCL 0.4 MG/1 ML VIAL/CARP IV PRN (12:55)
[2021-12-07] MEDS ORDERED: ONDANSETRON INJ 2 MG/ML 2 ML VIAL IV PRN (12:55)
[2021-12-07] MEDS ORDERED: diphenhydrAMINE 50 MG/ML VIAL IV PRN (12:55)
[2021-12-07] MEDS ORDERED: fentaNYL 2MCG/ML ROPIVACAINE 1.25MG/ML 100 ML BAG EPI PRN (12:55)
[2021-12-07] MEDS ORDERED: NALOXONE HCL 1 MG in SODIUM CHLORIDE 0.9% 1000ML 1,000 ML IV PRN (12:55)
--- NOTE | 2021-12-07 12:59 | Anesthesiology Consultation ---
Date of Service December 07, 2021 Assessment & Plan Chart Review Chart Review: Patient NOT seen in Pre Admission Testing and Acceptable Risk for Labor Epidural Consults Requested none ASA ASA2 Proposed Anesthesia Anesthesia Type: Labor Epidural and CSE Risk / Benefits Reviewed With: PT / POA / Parent / Guardian, Accepts Plan and Informed Consent Obtained History Height/Weight Height: 5 ft 7 in Weight: 91.626 kg Allergies Allergy/AdvReac Type Severity Reaction Status Date / Time kiwi Allergy Severe LIP/THROAT/FACE Verified 12/06/21 13:03 EDEMA Sulfa (Sulfonamide Allergy Intermediate HIVES Verified 12/06/21 13:03 Antibiotics) bacitracin Allergy Mild RASH Verified 12/06/21 13:03 latex Allergy Mild RASH Verified 12/06/21 13:03 neomycin Allergy Mild RASH Verified 12/06/21 13:03 polymyxin B Allergy Mild RASH Verified 12/06/21 13:03 nickel AdvReac Mild SKIN Verified 12/06/21 13:03 IRRITATION Medications Home Medications Medication Instructions Recorded Confirmed Last Taken prenat.vits,marielos,[id number] 1 tab PO HS 06/10/19 12/07/21 12/06/21 21:00 acetone (urine) test (Ketone Urine #50 ea 06/03/21 12/06/21 Unknown Test strips) blood sugar diagnostic (OneTouch #150 ea 06/03/21 12/06/21 Unknown Verio test strips) lancets 33 gauge (OneTouch Delica #150 ea 06/03/21 12/06/21 Unknown Plus Lancet) Active Medications Generic Name Dose Route Start Last Admin Trade Name Freq PRN Reason Stop Dose Admin Oxytocin 30 units in 500 mls @ 13 mls/hr 12/07/21 08:59 12/07/21 12:15 Pitocin IV 12/09/21 08:58 0.78 units/hr .Q24H PRN 13 mls/hr Labor Induction/Augmentation Titration Protocol 0.78 UNITS/HR Lactated Ringer's 1,000 mls @ 125 mls/hr 12/07/21 08:59 12/07/21 12:57 Lr IV 12/09/21 08:58 999 mls/hr .Q8H PRN Administration L&D Protocol Protocol NPO Date Last Intake of Fluids: 12/07/21 Time Last Intake of Fluids: 11:00 Date Last Intake of Solids: 12/07/21 Time Last Intake of Solids: 07:00 Past Medical History Medical History Bleeding in early Gestational diabetes Diet Controlled History of chicken pox Missed Pericardial cyst INCIDENTAL FINDING 06/2018- CT SCAN FINDING DURING - S/P CYST REMOVAL labor in second trimester 18 wks Progesterone given Uterine fibroid Per patient uterine fibroid in 1st in 2011. Exercise / Class Metabolic Activity II 4-5 Yardwork/Stairs/Walk up hill Past Family History Family History Mother Cervical cancer Hypertension Brother Hypertension Son Morgagni hernia Denies family history of Ovarian cancer Prostate cancer Diabetes Breast cancer Lung cancer Past Surgical History Surgical History History of cholecystectomy LAP History of dilatation and curettage S/P pericardial cyst excision 1. Right thoracoscopy with extensive lysis of adhesions. 2. Excision of pericardial cyst. Dr. Sanchez 12-07-18 Past Anesthesia History No Hx of Anesthesia Complications and No Family Hx of Anesthesia Complications History of PONV No Hx of PONV and No Hx of Motion Sickness Social History Smoking Status: Never smoker Hx Alcohol Use: No Hx Substance Use: No substance use type: does not use Review of Systems no chest pain or sob Physical Exam Vital Signs Last Vital Signs Temp 36.6 C 12/07/21 12:41 Pulse 65 12/07/21 12:52 Resp 18 12/07/21 12:41 BP 127/72 12/07/21 12:33 Pulse Ox 97 12/07/21 12:52 ENMT Mouth: no TMJ abnormality Thyromental Distance: > or= 3.5 Finger Breadths Mallampati Class: II Neck normal visual inspection Respiratory normal respiratory effort Auscultation: lungs clear to auscultation bilaterally Cardiovascular Rate/Rhythm: regular rate and regular rhythm Musculoskeletal Spine: normal cervical ROM Neurologic moves all extremities Psychiatric Orientation: alert and oriented x 3 Testing Laboratory Results 12/07/21 10:16 Blood Type O Positive 12/07/21 10:16 Antibody Screen NEGATIVE 12/07/21 10:16 12/07/21 09:07 POC Glucose 84
--- NOTE | 2021-12-07 17:13 | Delivery Summary ---
Vaginal Delivery Summary Date of Service December 07, 2021 Vaginal Delivery Summary DIAGNOSES: 1. Nicholas intrauterine at 39w1d gestation. 2. Induction of labor. 3. Group B Streptococcus Neg. 4. Gestational Diabetes, diet controlled PROCEDURE: Spontaneous vaginal delivery without laceration. SURGEON: Dunia Schwab MD. BIOCHEMISTRY TECHNOLOGIST: None. ESTIMATED BLOOD LOSS: 350 mL. COMPLICATIONS: None. PLACENTA: Spontaneous and intact with a 3-vessel cord. DISPOSITION: Stable to labor and delivery. DESCRIPTION: The patient pushed well and brought the head to in DOP position. The 's head was allowed to deliver with contraction force and no further active pushing, with the perineum protected during this time. There was no nuchal cord. The left shoulder was anterior. The shoulders and body delivered without any difficulty, and the was placed on the maternal abdomen. It was vigorous and moving all extremities, and making respiratory efforts. The cord was doubly clamped by the MD and then cut by the FOB. The placenta delivered spontaneously and was noted to be intact and with a 3VC. The cervix, vagina and perineum were examined and were found to be without defect requiring repair. The fundus was firm and lochia minimal immediately after delivery. [facility] Vaginal Delivery Charge Vaginal Delivery Codes: 85067 global code for the antepartum, delivery, and p ost-
[2021-12-07] MEDS ORDERED: BENZOCAINE 20% AER SPR 82.5 GM CAN EXT PRN (17:15)
[2021-12-07] MEDS ORDERED: DIPHTHERIA/TETANUS/PERTUSSIS 0.5 ML SYR/VIAL IM ONE (17:15)
[2021-12-07] MEDS ORDERED: HYDROCORTISONE ACETATE 25 MG SUPP PR PRN (17:15)
[2021-12-07] MEDS ORDERED: ACETAMINOPHEN 325 MG TAB PO PRN (17:15)
[2021-12-07] MEDS ORDERED: oxyCODONE/ACETAMINOPHEN 5mg/325mg TAB PO PRN (17:15)
--- NOTE | 2021-12-07 17:43 | Anesthesia Procedure Note ---
Date of Service December 07, 2021 Anesthesia Post Epidural Note Vital Signs Vital Signs: Temp Pulse Resp BP Pulse Ox 36.7 C 51 L 18 125/58 L 98 12/07/21 17:05 12/07/21 17:33 12/07/21 17:35 12/07/21 17:33 12/07/21 16:52 Notes Mental Status: alert / awake / arousable and participated in evaluation Nausea / Vomiting: adequately controlled Pain: adequately controlled Airway Patency, RR, SpO2: stable & adequate BP & HR: stable & adequate Hydration State: stable & adequate Neuraxial Anesthesia: was administered and sensory block is resolving Anesthetic Complications: no major complications apparent and Pt Satisfied with anesthetic care Epidural: Removed without complications and With tip intact
[2021-12-07] MEDS: IBUPROFEN 600 MG TAB PO PRN (21:03)
[2021-12-07] MEDS: DOCUSATE SODIUM 100 MG CAP PO SCH (21:03)
[2021-12-08] MEDS: IBUPROFEN 600 MG TAB PO PRN ×2 (00:06→07:52)
[2021-12-08 06:40] LABS: Hemoglobin 10.2 g/dl (12.0-16.0); Mean Corpuscular Hemoglobin 31.2 pg (25.0-34.0); Mean Corpuscular Hgb Conc 32.9 g/dL (32.0-36.0); Mean Corpuscular Volume 94.8 fL (80.0-100.0); Mean Platelet Volume 10.9 fL (9.4-12.3); Platelet Count 132 K/uL (130-400); RDW Coefficient of Variation 13.4 % (11.5-14.5); RDW Standard Deviation 45.8 fL (36.4-46.3); Red Blood Count 3.27 M/uL (3.93-5.22); White Blood Count 7.92 K/ul (4.8-10.8)
--- NOTE | 2021-12-08 06:44 | Obstetrical Progress Note ---
Date of Service <Taylor Alvarez DO - Last Filed: 12/08/21 07:21> December 08, 2021 Assessment & Plan <Taylor Alvarez DO - Last Filed: 12/08/21 07:21> (1) Multigravida of advanced maternal age: (2) with history of pre-term labor: (3) Gestational diabetes mellitus (GDM) affecting : Plan s/p PPD 1: -O+, GBS-, Rubella immune -Hemoglobin reviewed,10.2 today (12/08), was 11.1 (8) -encourage ambulation, continue normal diet, monitor lochia. -encourage -Discussed discharge instructions with patient, return to clinic for 6 week follow up. <Dunia Schwab MD - Last Filed: 12/08/21 07:44> (1) Multigravida of advanced maternal age: (2) with history of pre-term labor: (3) Gestational diabetes mellitus (GDM) affecting : Subjective <Taylor Alvarez DO - Last Filed: 12/08/21 07:21> Skip is a 35 y/o female who is PPD #1 following at 39 1/7 weeks. Her was complicated by diet-controlled GDM. Patient was seen and examined at bedside.She reports feeling well overall this morning. Admits to some abdominal cramping & 3/10 pain well managed on analgesics. States some slight burning with urination. Tolerating meals overnight and able to ambulate some. Has been passing gas but no bowel movements. Has persistent lochia with some small clots, states she has had some episodes of "gushing" blood when she stands but not when sitting in bed. Currently breast feeding. Constitutional: no fever, no chills or no sweats Respiratory: no cough, no dyspnea or no wheezing Cardiovascular: no chest pain, no palpitations or no calf pain Breast: no breast pain Genitourinary (female): no dysuria Neurologic: no headache(s) Physical Exam <Taylor Alvarez DO - Last Filed: 12/08/21 07:21> Constitutional WD/WN, vitals as above no acute distress Respiratory no respiratory distress Auscultation: lungs clear to auscultation bilaterally; no rales, no rhonchi and no wheezes Cardiovascular RRR, no murmur, no edema Extremities: no calf tenderness and no edema Negative Connie's sign bilaterally. Gastrointestinal (Abdomen) Inspection/Auscultation: normal bowel sounds Genitourinary Uterine fundus firm, palpable below the umbilicus. Results & Data ([facility]) <Taylor Alvarez DO - Last Filed: 12/08/21 07:21> Vital Signs (Past 12 Hours) Vital Signs Temp Pulse Pulse Resp BP BP Pulse Ox 12/08/21 03:05 36.8 C 65 18 121/77 98 12/07/21 23:40 36.6 C 68 18 127/80 97 12/07/21 22:51 36.7 C 55 L 14 112/71 98 12/07/21 20:00 36.7 C 66 18 133/85 98 12/07/21 19:07 73 128/73 O2 Del Method 12/08/21 03:05 Room Air 12/07/21 23:40 Room Air 12/07/21 22:51 Room Air 12/07/21 20:00 Room Air 12/07/21 19:07 <Dunia Schwab MD - Last Filed: 12/08/21 07:44> Co-Signing Physician Notes Resident Physician Supervision Note: I interviewed and examined the patient. Discussed with Dr. Alvarez and agree with findings and plan as documented in the note. Any exceptions or clarifications are listed here: [ ] Documented By: Dunia Schwab MD, FACOG Resident Activity Tracking <Taylor Alvarez DO - Last Filed: 12/08/21 07:21> Resident Involvement: Resident Care Provided Care Provided: OB Delivery
[2021-12-08] MEDS: DOCUSATE SODIUM 100 MG CAP PO SCH (07:52)
[2021-12-08] MEDS ORDERED: PRENATAL VITAMIN 1 TAB PO SCH (08:00)
== END 2021-12-08 18:15 | disposition home or self-care (01) | DRG 807 ==
LOC: 4S1 07:37 → 4E1 20:23